=== PATIENT | female | born 1995 | race Caucasian/White ===

== ENCOUNTER 2024-07-02 15:14 | Emergency (ER) | payer OTHER ==
[~2024-07-02] VITALS: Ht 157.5 cm; Wt 88.1 kg
[2024-07-02] MEDS ORDERED: LIDOCAINE HCL100 ML MT (16:19)
[2024-07-02] MEDS ORDERED: AMOX TR-K CLV1 EAC1 PO (16:19)
[2024-07-02] MEDS ORDERED: KETOROLAC TROME10 MG PO (16:19)
[2024-07-02 16:35] VITALS: BP 141/94
== END 2024-07-02 16:34 | disposition home or self-care (01) ==
LOC: ED 15:14
DX: K02.9 Dental caries, unspecified (principal); S02.5XXA Fracture of tooth (traumatic), initial encounter for closed fracture; X58.XXXA Exposure to other specified factors, initial encounter
CPT/HCPCS: 99282